=== PATIENT | male | born 1995 | race Caucasian/White ===

== ENCOUNTER 2017-05-13 19:27 | Observation (INO) | payer BC ==
[2017-05-13 20:06] LABS: #Basophils 0.1 thou/uL (0.0-0.2); #Eosinphils 0.1 thou/uL (0.0-0.7); #Monocytes 0.9 thou/uL (0.11-0.59); #Neutrophils 7.1 thou/uL (1.40-6.50); %Basophils 0.6 % (0.0-1.0); %Lymphocytes 19.3 % (21.0-51.0); %Monocytes 8.8 % (0.0-10.0); Hematocrit 51.8 % (42.0-52.0); Mean Platelet Volume 6.2 fL (7.4-10.4); Red Blood Cell (RBC) Count 5.77 mill/uL (4.70-6.10); White Blood Cell (WBC) Count 10.1 thou/uL (4.8-10.8)
[2017-05-13 20:25] LABS: ALT (SGPT) 23 U/L (8-55); AST (SGOT) 28 U/L (5-34); Alkaline Phosphatase 66 U/L (40-150); Anion Gap 16 mmol/L (10-20); BUN (Urea Nitrogen) 11 mg/dL (8.9-20.6); Bilirubin, Total 1.7 mg/dL (0.2-1.2); CK (CPK) 106 U/L (30-200); Calc. Creatinine Clearance 0 mL/min (70-130); Calcium 9.9 mg/dL (7.8-10.44); Carbon Dioxide 26 mmol/L (22-29); Chloride 99 mmol/L (98-107); Estimated GFR-MDRD Greater than 90; Globulin 2.7 g/dL (2.4-3.5); Protein, Total 7.5 g/dL (6.0-8.3)
[2017-05-13 20:30] LABS: Troponin I Less than 0.010 ng/mL (< 0.028)
--- NOTE | 2017-05-13 20:52 | RAD ---
CHEST TWO VIEWS 05/13/17 HISTORY: Chest pain. FINDINGS: The cardiac silhouette and pulmonary vasculature are unremarkable. Mediastinum is midline. There is n o confluent air space consolidation, pneumothorax or pleural fluid apparent. IMPRESSION: No active cardiopulmonary abnormalities are demonstrated. POS: [facility]
[2017-05-13] MEDS ORDERED: Diazepam 5 MG TAB ONE (21:09)
[2017-05-13] MEDS ORDERED: Potassium Chloride 20 MEQ TAB ONE (21:10)
[2017-05-13 22:24] LABS: Bilirubin Negative (Negative); Blood, Urine Negative (Negative); Glucose, Urine (Dipstick) Negative (Negative); Ketone, Urine 40 mg/dL (Negative); Nitrite Negative (Negative); Protein, Urine (Dipstick) Negative (Neg-Trace)
[2017-05-13 22:30] LABS: Amphetamine Not Detected (NotDetected); Methadone Not Detected (NotDetected); Methamphetamine Not Detected (NotDetected)
[2017-05-14] MEDS ORDERED: Ondansetron ODT 4 MG TAB SL PRN (01:03)
[2017-05-14] MEDS ORDERED: Ondansetron HCl/PF 4 MG/2 ML Vial IVP PRN (01:03)
[2017-05-14] MEDS ORDERED: HYDROcodone/Acetaminophen 5/325 mg Tablet PO PRN (01:06)
[2017-05-14] MEDS ORDERED: HYDROcodone/Acetaminophen 10/325 mg Tablet PO PRN (01:06)
[2017-05-14] MEDS ORDERED: Ondansetron ODT 4 MG TAB PO PRN (01:06)
[2017-05-14] MEDS ORDERED: Acetaminophen 325 MG TAB PO PRN (01:06)
[2017-05-14 01:15] LABS: Troponin I Less than 0.010 ng/mL (< 0.028)
[2017-05-14] MEDS ORDERED: Enoxaparin Sodium 40 MG/0.4 ML SYRINGE SC SCH (01:15)
[2017-05-14] MEDS ORDERED: Sodium Chloride 0.45% 1,000 ML IV SCH (01:15)
[2017-05-14 02:01] VITALS: BMI 20.9
[2017-05-14] MEDS: Sodium Chloride 0.9% 1,000 ML IV SCH ×2 (02:20→12:16)
[2017-05-14 06:09] LABS: #Basophils 0.1 thou/uL (0.0-0.2); #Eosinphils 0.2 thou/uL (0.0-0.7); #Lymphocytes 2.3 thou/uL (1.20-3.40); #Monocytes 0.7 thou/uL (0.11-0.59); #Neutrophils 3.7 thou/uL (1.40-6.50); %Basophils 0.8 % (0.0-1.0); %Eosinophils 2.2 % (0.0-10.0); %Monocytes 9.7 % (0.0-10.0); Hematocrit 42.9 % (42.0-52.0); Mean Platelet Volume 6.2 fL (7.4-10.4); Red Blood Cell (RBC) Count 4.77 mill/uL (4.70-6.10); White Blood Cell (WBC) Count 6.8 thou/uL (4.8-10.8)
[2017-05-14 06:33] LABS: Anion Gap 8 mmol/L (10-20); BUN (Urea Nitrogen) 11 mg/dL (8.9-20.6); Calc. Creatinine Clearance 142 mL/min (70-130); Calcium 8.9 mg/dL (7.8-10.44); Carbon Dioxide 29 mmol/L (22-29); Chloride 105 mmol/L (98-107); Estimated GFR-MDRD Greater than 90
--- NOTE | 2017-05-14 07:04 | HP ---
DATE OF ADMISSION: 05/13/2017 PRIMARY CARE PHYSICIAN: Dr. Mcdonald, but has not been seeing him in about 4 years. CHIEF COMPLAINT: Intermittent chest pain, palpitations. HISTORY OF PRESENT ILLNESS: Mr. Perdue is a 22-year-old white male with no significant past medical history. He has had 3 months of discomforts in his upper body that have been intermittent. He will describe pain as a pressure-like sensation in the center of his chest that will go up to his neck or shoulder or down to his lower abdomen. It seems to be alleviated by flatus or belching but did have one episode that woke him up and seemed to be a sharp pain shooting down to the lower abdomen area. He has noted multiple episodes of palpitations where he can feel his heart racing. Not necessarily a ssociated with chest pain. After several months of this, and after discussing with his parents, he decided to go to Urgent Care earlier today. There he was noted to be tachycardic but regular, and because of a history of chest p ain and tachycardia, he was sent here for evaluation. Denies any syncope or presyncope. No known an xiety. He has had 1-2 episodes of sweats at night and at least one occasion where he has had to reyes ge his clothes, but no overt fever. No cough or sputum production. No GI bleeding from above or bel ow. The patient does use alcohol and drinks pretty much every day. Has just a couple of beers to be take n around the house, but if he goes out to the bar, will have anywhere from 6 to 8 he thinks. He does go sometimes a couple of weeks without drinking much and says he does not get agitated or anx ious or have tremors. He presented here at the emergency department. He was given a liter of normal saline, 324 mg of aspi rin, 10 mg of Valium, and 40 mEq of KCl. Potassium was noted to be slightly low. A second liter has been ordered but not given. His heart rates fluctuated per the ER notes from 104 to 120; however, when I was seeing him, he was i n the low 90s and actually dipped down into the 80s. The ER doctor did consult Dr. Grayson, who said he would see the patient if he was admitted, I will ge t an echocardiogram. Other workup so far has been negative. PAST MEDICAL HISTORY: None. PAST SURGICAL HISTORY: None. HOME MEDICATIONS: None. ALLERGIES: NKDA. FAMILY HISTORY: Negative for clotting or bleeding disorder. No immune dysfunction, no premature cor onary artery disease. He does have a grandfather who was diagnosed in his 50s with COPD. SOCIAL HISTORY: Significant for alcohol as above. He denies any IV drug use or marijuana use. He d oes not smoke tobacco but does vape regularly. REVIEW OF SYSTEMS: A 10-point review of systems was performed, negative for all the systems except a s stated as per HPI. PHYSICAL EXAMINATION: VITAL SIGNS: Temperature 98.3, pulse 110, down in the low 90s when I saw him, blood pressure 143/96, respiratory rate 15, satting 98% on room air. GENERAL: He is awake. He is alert. He is oriented x3. He is a well-developed, well-nourished whit e male, appears to be in no acute distress. HEENT: Normocephalic, atraumatic. Pupils are equal and reactive bilaterally. Conjunctivae are mois t without visible lesions or thrush. NECK: Supple. There is no lymphadenopathy, JVD, or thyromegaly. He has normal carotid upstrokes wi thout bruits. Thyroid is normal. LUNGS: Clear to auscultation bilaterally. There were no wheezes, no rales, no rhonchi, no prolonged expiratory phase. He has symmetrical chest excursion without abnormality in air movement. CARDIOVASCULAR: Normal S1 and S2. No S3 or S4. No murmurs. He is tachycardic but regular. ABDOMEN: Soft. It is nontender, nondistended with normoactive bowel sounds present in all 4 quadran ts. EXTREMITIES: No cyanosis, no clubbing. No edema with 2+ peripheral pulses. NEUROLOGIC: Cranial nerves II through XII are grossly intact. There are no focal neurologic deficit s. He does not appear anxious. SKIN: Warm, moist, and well perfused. There are no rashes or lesions. MUSCULOSKELETAL: Normal to inspection. His large joints appear intact, there is no inflammation and no palpable effusions. LABORATORY DATA: CMP is normal. Potassium slightly low at 3.4, creatinine 0.97, BUN of 11, glucose of 87, calcium is 9.9. Liver function is normal except for a total bilirubin slightly elevated at 1. 7. CBC showed a white count of 10.1, hemoglobin 17.7, hematocrit of 51.8, platelet count of 363,000. CK -MB normal at 0.7, troponin I undetectable and free T4 1.04 with a TSH of 2.06. Chest x-ray showed no abnormalities. ASSESSMENT AND PLAN: 1. Palpitations: The patient has has sinus tachycardia. EKG shows possible biatrial enlargement. We will place the patient in observation. Get serial cardiac biomarkers, and a stat 2-D echocardiogr am in the morning. Dr. Grayson will be consulted for his opinion. Certainly, this could represent a pericarditis or viral myocarditis, we will follow up with the results of the echocardiogram and the l ab testing. 2. Intermittent chest pains: I do not suspect ischemic coronary artery disease in a 22-year-old to present this way. I will follow up on the results of his echo as above. Place him on a PPI and nicanor tor. 3. Alcohol use: The patient denies any history of withdrawal. Watch him very closely and use Ativa n p.r.n.
[2017-05-14 07:15] LABS: Free T3 2.76 pg/mL (1.71-3.71)
[2017-05-14] MEDS ORDERED: Famotidine 20 MG TAB PO SCH (09:00)
[2017-05-14] MEDS ORDERED: Aspirin 325 MG TAB PO SCH (09:00)
--- NOTE | 2017-05-14 11:07 | PDOC.EVN ---
Event Note - Event Note Event Note: Pt seen and examined. chart reviewed. care discussed w parents at bedside. Reports of more right sided AP radiating to lower belly,relieved with passing gas.Feels like heartburn. with slightly high,T.Bilirubin,will get RUQ-US to r/o GB colic. VSS No RUQ tenderness on exam per se however. CTA b/l. Few ectpoic beats on cardiac auscultation.Troponins negative so far. ECHO done,results pending.cardiology recs requested. will follow
--- NOTE | 2017-05-14 14:06 | ULT ---
RIGHT UPPER QUADRANT ULTRASOUND: DATE: 05/14/17. COMPARISON: None. HISTORY: Right upper quadrant pain, elevated bilirubin. TECHNIQUE: Multiplanar, urrutia scale, sonographic imaging of the right upper quadrant obtained. FINDINGS: The imaged pancreatic parenchyma appears unremarkable. The tail is partially obscured by bowel gas. There is no focal liver lesion or intrahepatic biliary dilatation seen. There is no gallbladder wall thickening or pericholecystic fluid. Common bile duct measures 2-3 mm, within normal limits. No gallstones are noted. The right kidney measures 9.9 cm in craniocaudal dim ension and demonstrates no stone, hydronephrosis, or mass lesion. The carpenters helper reports a negative Alejo's sign. IMPRESSION: Unremarkable right upper quadrant ultrasound. POS: [facility]
--- NOTE | 2017-05-14 14:16 | CON ---
CARDIOLOGY CONSULTATION NOTE DATE OF CONSULTATION: 05/14/2017 REASON FOR CONSULTATION: Chest pain and tachycardia. HISTORY OF PRESENT ILLNESS: Mr. Perdue is a very pleasant 22-year-old white gentleman who comes to [facility] for chest pain and tachycardia. He noted that his heart was in the 120s, so he decided t o go to an urgent care who referred him to the ER. He was found to have a heart rate in the 120s, so he was admitted for further evaluation and there was no good reason. He was found to be in sinus ta chycardia. He already complained of upper chest pain. He states that the pain happens when he eats spicy food or very fatty food. He usually burps and the pain goes away or passes gas and the pain go es away. He does not really exercise, he is not that active, but he otherwise has no other problems. PAST MEDICAL HISTORY: None. SOCIAL HISTORY: He drinks about 4-8 beers every day, more on the weekends. No tobacco or drugs. FAMILY HISTORY: Noncontributory. OUTPATIENT MEDICATIONS: None. ALLERGIES: No known drug allergies. REVIEW OF SYSTEMS: A 12-point of systems was done, it is all negative unless stated in the history o f present illness. PHYSICAL EXAMINATION: VITAL SIGNS: Temperature 98.0, pulse 76, respiratory rate 16, satting 96% room air and blood pressur e 132/85. GENERAL: Awake, alert and oriented x3, in no distress. HEENT: Normocephalic and atraumatic. NECK: Supple. LUNGS: Clear. CARDIOVASCULAR: S1 and S2. No S3 or S4. No murmurs or rubs. ABDOMEN: Soft, positive bowel sounds. EXTREMITIES: No edema. SKIN: Warm and dry. LABORATORY DATA: Laboratory work was reviewed. Normal white count, hemoglobin 17, hematocrit 51 and platelet count of 363. Coags: D-dimer was undetectable. Chemistries were normal except for a low potassium of 3.4. Troponin was negative x2. Free T3, free T4 and TSH were normal. UA was unremarka ble and urine drug screen is negative. IMAGING DATA: Echocardiogram was reviewed, normal LV function, normal diastolic function, trace MR a nd mild TR. Abdominal ultrasound is pending. Chest x-ray is unremarkable. ASSESSMENT AND PLAN: 1. Sinus tachycardia: Resolved. May be related to his alcohol use. At this time, he is got a norm al echocardiogram. I do not think we need to do a stress test on him as his symptoms are most likely related to gastroesophageal reflux disease. 2. Gastroesophageal reflux disease. I have advised him to stop alcohol use, also to try to stay jodi y from really fatty foods. We will prescribe proton pump inhibitor to take every day for the next mo nt and we will plan on seeing him in 1 month to see if he has any improvement in his symptoms. 3. Chest pain: As above, probably related to gastroesophageal reflux disease. 4. Alcohol use: Counseled on cessation. Thank you for letting us to participate in the care of the patient. We will sign off. Please call w ith any questions.
[2017-05-14 15:22] VITALS: BP 119/63; TEMP 98
--- NOTE | 2017-05-15 02:52 | DIS ---
DATE OF ADMISSION: 05/14/2017 DATE OF DISCHARGE: 05/14/2017 CONDITION AT THE TIME OF DISCHARGE: Stable and improved. DISCHARGE DIAGNOSES: 1. Sinus tachycardia. 2. Gastroesophageal reflux disease. 3. Alcohol overuse. DISCHARGE MEDICATIONS: Protonix 40 mg daily. PROCEDURES DONE IN THE HOSPITAL: Include; 1. Abdominal ultrasound which was negative for any gallstones, pericholecystic fluid or gallbladder wall thickening. 2. Transthoracic echocardiogram, which is entirely within normal limits with EF of 60-65%. CONSULTATIONS: Include Cardiology, Dr. Grayson. PRIMARY CARE PHYSICIAN: Everton Mcdonald M.D. HISTORY OF PRESENTING ILLNESS: Mr. Perdue is a young 22-year-old male without any signific ant past medical history who presented to the emergency room with complaints of on and off chest pain , which felt like acid reflux associated with some palpitations. He was found to have sinus tachycar cuco upon presentation and was admitted for further evaluation. Please see admission history and phys ical dictated earlier this morning by Dr. Pandey. HOSPITAL COURSE: The patient was seen by Cardiology and underwent a cardiac evaluation with serial c ardiac enzymes and echocardiogram and cardiac monitoring. All of his cardiac workup was unremarkable . He also underwent a right upper quadrant ultrasound with regards to his symptoms of pain starting in the lower chest and upper abdomen. He did not have any gallbladder issues either. He remained hemodynamically stable and at this time was cleared by Cardiology for discharge. He was started on Protonix and the care was discussed with his parents present in the room. He was advised to stay away from alcohol use and follow up with Cardiology as an outpatient. He was seen and examin ed prior to discharge. PHYSICAL EXAMINATION: VITAL SIGNS: Temperature 98, respirations 16, saturating 96% on room air, blood pressure 132/85. GENERAL: No acute distress, awake, alert, oriented x3. CHEST: Clear to auscultation without any wheezing, rales or rhonchi. HEART: Rhythm is regular without any murmur, rubs or gallops. At this time, he will be discharged home. All questions were answered.
== END 2017-05-14 15:20 | disposition home or self-care (01) ==
LOC: ERS 19:27 → 2SW 05-14 00:10
PROVIDERS: ADMIT Internal Medicine Infectious Disease; ATTEND Internal Medicine Infectious Disease
DX: R00.0 Tachycardia, unspecified (principal); K21.9 Gastro-esophageal reflux disease without esophagitis; R07.89 Other chest pain; F10.10 Alcohol abuse, uncomplicated; F17.290 Nicotine dependence, other tobacco product, uncomplicated
CPT/HCPCS: 36415; 71020; 76705; 80048; 80053; 80306; 81003; 82553; 84439; 84443; 84481; 84484; 85025; 85379; 93005; 93010; 93306; 96360; 96361; 99406; G0378; J1650

== ENCOUNTER 2017-11-02 20:41 | Inpatient (IN) | payer BC, OTHER, SELFPAY ==
[2017-11-02] MEDS ORDERED: Ondansetron ODT 4 MG TAB PO PRN (22:40)
[2017-11-02] MEDS ORDERED: Acetaminophen 500 MG TAB PO PRN (22:40)
[2017-11-02] MEDS ORDERED: Lorazepam 1 MG TAB PO PRN (22:40)
[2017-11-02] MEDS ORDERED: Ondansetron HCl/PF 4 MG/2 ML Vial IVP PRN (22:40)
[2017-11-02] MEDS: Morphine 4 MG/ML VIAL SLOW IVP PRN (22:53)
[2017-11-02] MEDS: Sodium Chloride 0.9% 1,000 ML IV SCH (22:57)
[2017-11-02 23:09] VITALS: BMI 20.1
[2017-11-03] MEDS: traMADol HCl 50 MG TAB PO PRN ×2 (01:20→21:58)
[2017-11-03] MEDS: Morphine 4 MG/ML VIAL SLOW IVP PRN ×4 (03:33→17:32)
[2017-11-03 05:13] LABS: ALT (SGPT) 16 U/L (8-55); AST (SGOT) 21 U/L (5-34); Albumin 3.4 g/dL (3.5-5.0); Alkaline Phosphatase 56 U/L (40-150); Anion Gap 11 mmol/L (10-20); BUN (Urea Nitrogen) 7 mg/dL (8.9-20.6); Bilirubin, Total 0.9 mg/dL (0.2-1.2); Calc. Creatinine Clearance 162 mL/min (70-130); Calcium 8.5 mg/dL (7.8-10.44); Carbon Dioxide 22 mmol/L (22-29); Cardiac Risk 2.8 (Less than 4.5); Chloride 103 mmol/L (98-107); Cholesterol 115 mg/dl (< 200 Desired); Estimated GFR-MDRD Greater than 90; Glucose 83 mg/dL (70-105); HDL Cholesterol 41 mg/dL (>60 Neg Risk); LDL Cholesterol, Calculated 60 mg/dL; Potassium 3.7 mmol/L (3.5-5.1); Protein, Total 5.4 g/dL (6.0-8.3); Sodium 132 mmol/L (136-145); Triglycerides 70 mg/dL (Less than 150)
[2017-11-03] MEDS: Sodium Chloride 0.9% 1,000 ML IV SCH ×3 (05:23→21:56)
[2017-11-03 05:25] LABS: Band 3 % (5-11); Eosinophils 1 % (0-10); Hemoglobin 14.1 g/dL (14.0-18.0); Lymphocytes 11 % (21-51); MDiff Complete? YES; Mean Corpuscular HGB CONC 34.7 g/dL (32.0-36.0); Mean Corpuscular Hemoglobin 30.6 pg (27.0-31.0); Mean Corpuscular Volume 88.2 fl (80.0-94.0); Mean Platelet Volume 6.3 fL (7.4-10.4); Monocytes 5 % (0-10); Neutrophil 80 % (42-75); PLT Morphology Comment Appears Adequate; Platelet Count 218 thou/uL (130-400); RBC Distribution Width 11.2 % (11.5-14.5); RBC Morphology Normal; White Blood Cell (WBC) Count 8.4 thou/uL (4.8-10.8)
[2017-11-03 05:30] LABS: Lipase 2569 U/L (8-78)
[2017-11-03] MEDS ORDERED: Acetaminophen 500 MG TAB PO PRN (07:14)
--- NOTE | 2017-11-03 07:17 | HP ---
DATE OF ADMISSION: 11/02/2017 PRIMARY CARE PHYSICIAN: Everton Mcdonald MD CHIEF COMPLAINT: Abdominal pain. HISTORY OF PRESENT ILLNESS: This is a 22-year-old male who complains of approximately 3-da y history of midepigastric abdominal pain which is sharp in nature, stabbing, radiating to the back. The patient denied any recent trauma, injury, travel history, nausea, or vomiting. The patient stat es he took [id number] antacids for reflux symptoms as he thought this was the issue causing his pain. The patient apparently did not have any relief from the antacids and presented to [facility] for evaluation. The patient apparently was evaluated and diagnosed with gastritis/reflu x and placed on Prilosec OTC. The patient states the symptoms did not improve with this medication w ith worsening abdominal pain. The patient did not take any other specific recent medications and den ies any chronic medication use. The patient states that he started noticing reflux and heartburn sym ptoms in April 2017 and apparently was admitted to [facility], undergoing multitude of te sts including echocardiogram and abdominal ultrasound. The patient was eventually discharged home on 05/14/2017, diagnosed with gastroesophageal reflux disease as well as alcohol abuse. The patient wa s told to modify his diet and avoid alcohol. However, patient states he only did this for a short am ount of time, at which point, his symptoms have returned. The patient does admit to drinking a six p ack of beer per day. The patient also states he had taken over the counter Pepto-Bismol for his refl ux and has noted some dark stools. The patient denied any hematemesis, weight loss, travel history o r family members with similar symptoms. The patient presented to [facility] in [place], [place], undergo ing CT of the abdomen showing evidence of pancreatitis. The patient had an amylase drawn which was e levated, but no specific lipase. The patient was treated with Dilaudid and intravenous normal saline and transferred to [facility] for further evaluation and observation. PAST MEDICAL HISTORY: 1. Alcohol abuse. 2. Gastritis/gastroesophageal reflux disease. PAST SURGICAL HISTORY: Reviewed and negative. CURRENT HOME MEDICATIONS: [id number] Prilosec. ALLERGIES: No known drug allergies. FAMILY HISTORY: No inheritable diseases per patient report. One grandfather diagnosed with COPD. SOCIAL HISTORY: Patient resides in [place], [place]. Accompanied by his mother and girlfriend in the spital. Reports admits to an electronic cigarette use. Alcohol use up to 6 cans of beer daily. No illicit drug use. Functional of all activities of daily living. REVIEW OF SYSTEMS: The following complete review of systems was negative, unless otherwise mentioned in the HPI or below: Constitutional: Weight loss or gain, ability to conduct usual activities. Sk in: Rash, itching. Eyes: Double vision, pain. ENT/Mouth: Nose bleeding, neck stiffness, pain, te nderness. Cardiovascular: Palpitations, dyspnea on exertion, orthopnea. Respiratory: Shortness of breath, wheezing, cough, hemoptysis, fever or night sweats. Gastrointestinal: Poor appetite, abdom inal pain, heartburn, nausea, vomiting, constipation, or diarrhea. Genitourinary: Urgency, frequenc y, dysuria, nocturia. Musculoskeletal: Pain, swelling. Neurologic/Psychiatric: Anxiety, depressio n. Allergy/Immunologic: Skin rash, bleeding tendency. PHYSICAL EXAMINATION: VITAL SIGNS: Blood pressure 131/84, pulse 90, temperature 98.1 degrees Fahrenheit, respiratory rate 20, O2 saturation 96% on room air. GENERAL APPEARANCE: This is a 22-year-old male, alert and oriented x3, pleasant, conversan t, in mild distress. HEENT: Pupils are equal, round, and reactive to light and accommodation. Extraocular muscles are in tact. No scleral icterus, no conjunctival injection. Nares patent. OP is clear. Teeth in good rep air. NECK: Supple. No cervical adenopathy, no thyromegaly, no carotid bruits, no JVD appreciated. Cervi reji spine full active and passive range of motion. No meningeal signs appreciated. CHEST: Lungs are clear to auscultation bilaterally. No wheezing or rhonchi. CARDIOVASCULAR: S1, S2 without murmur, rub, or gallop. ABDOMEN: Flat with mild tenderness to palpation in the midepigastric region. No palpable mass. Chemult el sounds are positive but diminished in all 4 quadrants. No rebound or guarding noted. EXTREMITIES: Warm and dry with fair turgor. No clubbing, cyanosis, or asymmetric edema appreciated. Pulses palpable distally at the dorsalis pedis, posterior tibial, and popliteal arteries bilaterall y. Capillary refill less than 2 seconds. NEUROLOGIC: Cranial nerves II through XII are grossly intact. No focal or lateralizing signs apprec iated. PERTINENT LABORATORY AND X-RAY FINDINGS: Sodium 134, potassium 3.2, chloride 96, CO2 of 25, BUN 6, c reatinine 0.7, glucose 100. CBC showed a white blood cell count of 10, hemoglobin 16.6, hematocrit 4 7.3, platelet count 233,000, AST 49, ALT of 11. Amylase 341. Urinalysis positive for ketones and pr otein. CT of the abdomen and pelvis with contrast dated 11/02/2017 showed glandular edema of the gonzalez creas with peripancreatic fluid consistent with acute pancreatitis. No obstructive mass or stone not ed. No cyst or pseudocyst. No abscess or drainable fluid collection. No free air noted. ASSESSMENT AND PLAN: 1. Acute pancreatitis. Suspect alcohol induced given patient's chronic alcohol abuse. Continue n.p .o. status except for sips of water. Continue intravenous normal saline at 125 mL per hour. Morphin e sulfate 2 mg IV q.4 hours p.r.n. Check lipase level now. Repeat lipase level in the a.m. Check f asting lipid profile in the a.m. 2. Acute midepigastric abdominal pain secondary to #1. See #1 above for treatment. Continue suppor tive measures. N.p.o. status currently. 3. Gastroesophageal reflux. Continue Pepcid 20 mg IV q.12 hours. Check stool Hemoccult. 4. Alcohol abuse. We will offer cessation resources prior to discharge. Ativan 1 mg p.o. q.4 hours p.r.n. withdrawal symptoms. 5. Prophylaxis. Sequential compression devices while in bed. Pepcid 20 mg IV q.12 hours. 6. Code status is FULL. Surrogate medical decision maker is the patient's mother.
[2017-11-03 09:19] LABS: CRP (Inflammatory) 5.44 mg/dL (= or < 0.5); Magnesium 1.7 mg/dL (1.6-2.6)
[2017-11-03] MEDS: Famotidine/PF 20 mg/2ml Vial SLOW IVP SCH ×2 (09:38→20:51)
--- NOTE | 2017-11-03 11:06 | PDOC.PN ---
- Subjective Encounter Start Date: 11/03/17 Encounter Start Time: 08:45 -: old records requested/rev Patient seen and examined for acute pancreatitis. No new complaints. No overnight events - Objective Resuscitation Status: Resuscitation Status FULL:Full Resuscitation MAR Reviewed: Yes Vital Signs & Weight: Vital Signs (12 hours) Temp Pulse Resp BP Pulse Ox 11/03/17 08:00 97.9 F 94 16 96 11/03/17 07:24 97.9 F 94 16 120/75 96 11/03/17 05:43 98.2 F 99 18 115/73 96 11/03/17 00:41 98 F 100 18 119/74 98 11/02/17 23:36 97.8 F 84 18 95 Weight Admit Weight 148 lb 8 oz Weight 148 lb 8 oz I&O: 11/02/17 11/03/17 11/04/17 06:59 06:59 06:59 Intake Total 1027 Output Total 250 Balance 777 Result Diagrams: 11/03/17 04:17 11/03/17 04:17 Phys Exam - Physical Examination Constitutional: NAD HEENT: PERRLA, moist MMs, sclera anicteric Neck: no JVD, supple Respiratory: no wheezing, no rales, no rhonchi Cardiovascular: RRR, no significant murmur, no rub Gastrointestinal: soft, non-tender, no distention, positive bowel sounds Musculoskeletal: no edema, pulses present Neurological: non-focal, normal sensation, moves all 4 limbs Psychiatric: normal affect, A&O x 3 Skin: no rash, normal turgor Dx/Plan (1) Acute alcoholic pancreatitis Code(s): K85.20 - ALCOHOL INDUCED ACUTE PANCREATITIS WITHOUT NECROSIS OR INFCT Status: Acute (2) Alcohol abuse Code(s): F10.10 - ALCOHOL ABUSE, UNCOMPLICATED Status: Chronic (3) GERD (gastroesophageal reflux disease) Code(s): K21.9 - GASTRO-ESOPHAGEAL REFLUX DISEASE WITHOUT ESOPHAGITIS Status: Chronic - Plan cont current plan of care * contineu IVF * repeat labs tomorrow * continue IV pepcid * continue morphin for pain control * will allow ice chips today * will advance diet tomorrow based on labs result * counselled to avoid alcohol abuse * medication reviewed as below * symptomatic treatment. Review of Systems - Review of Systems Constitutional: negative: fever, chills, sweats, weakness, malaise, other Eyes: negative: Pain, Vision Change, Conjunctivae Inflammation, Eyelid Inflammation, Redness, Other ENT: negative: Ear Pain, Ear Discharge, Nose Pain, Nose Discharge, Nose Congestion, Mouth Pain, Mouth Swelling, Throat Pain, Throat Swelling, Other Respiratory: negative: Cough, Dry, Shortness of Breath, Hemoptysis, SOB with Excertion, Pleuritic Pain, Sputum, Wheezing Cardiovascular: negative: chest pain, palpitations, orthopnea, paroxysmal nocturnal dyspnea, edema, light headedness, other Gastrointestinal: Abdominal Pain. negative: Nausea, Vomiting, Diarrhea, Constipation, Melena, Hematochezia, Other Genitourinary: negative: Dysuria, Frequency, Incontinence, Hematuria, Retention , Other Skin: negative: Rash, Lesions, Román, Bruising, Other Neurological: negative: Weakness, Numbness, Incoordination, Change in Speech, Confusion, Seizures, Other - Medications/Allergies Allergies/Adverse Reactions: Allergies Allergy/AdvReac Type Severity Reaction Status Date / Time No Known Drug Allergies Allergy Verified 05/14/17 01:01 Medications: Current Medications Acetaminophen (Tylenol) 500 mg PO Q6H PRN PRN Reason: Headache/Fever or Mild Pain Famotidine (Pepcid) 20 mg SLOW IVP Q12HR REA Last Admin: 11/03/17 09:38 Dose: 20 mg Sodium Chloride (Normal Saline 0.9%) 1,000 mls @ 125 mls/hr IV .Q8H REA Last Admin: 11/03/17 05:23 Dose: 1,000 mls Lorazepam (Ativan) 1 mg PO Q4H PRN PRN Reason: Anxiety/Agitation Morphine Sulfate (Morphine) 2 mg SLOW IVP Q4H PRN PRN Reason: Moderate to Severe Pain (6-10) Last Admin: 11/03/17 09:35 Dose: 2 mg Ondansetron HCl (Zofran Odt) 4 mg PO Q6H PRN PRN Reason: Nausea/Vomiting Ondansetron HCl (Zofran) 4 mg IVP Q6H PRN PRN Reason: Nausea/Vomiting Sodium Chloride (Flush - Normal Saline) 10 ml IVF Q12HR REA Last Admin: 11/03/17 09:38 Dose: Not Given Sodium Chloride (Flush - Normal Saline) 10 ml IVF PRN PRN PRN Reason: Saline Flush Tramadol HCl (Ultram) 50 mg PO Q4H PRN PRN Reason: Moderate Pain (4-6) Last Admin: 11/03/17 01:20 Dose: 50 mg
[2017-11-04] MEDS: Sodium Chloride 0.9% 1,000 ML IV SCH ×3 (06:01→22:37)
[2017-11-04] MEDS: traMADol HCl 50 MG TAB PO PRN ×2 (07:44→21:20)
[2017-11-04] MEDS: Famotidine/PF 20 mg/2ml Vial SLOW IVP SCH ×2 (07:46→20:17)
[2017-11-04 09:53] LABS: #Eosinphils 0.3 thou/uL (0.0-0.7); #Lymphocytes 1.2 thou/uL (1.20-3.40); #Monocytes 0.7 thou/uL (0.11-0.59); #Neutrophils 5.5 thou/uL (1.40-6.50); %Basophils 0.2 % (0.0-1.0); %Eosinophils 3.8 % (0.0-10.0); %Lymphocytes 15.6 % (21.0-51.0); %Monocytes 9.4 % (0.0-10.0); %Neutrophils 71.1 % (42.0-75.0); Hemoglobin 14.2 g/dL (14.0-18.0); Mean Corpuscular HGB CONC 35.7 g/dL (32.0-36.0); Mean Corpuscular Hemoglobin 31.4 pg (27.0-31.0); Mean Corpuscular Volume 87.9 fl (80.0-94.0); Mean Platelet Volume 6.1 fL (7.4-10.4); Platelet Count 236 thou/uL (130-400); RBC Distribution Width 11.2 % (11.5-14.5); Red Blood Cell (RBC) Count 4.53 mill/uL (4.70-6.10); White Blood Cell (WBC) Count 7.8 thou/uL (4.8-10.8)
[2017-11-04 10:10] LABS: ALT (SGPT) 13 U/L (8-55); AST (SGOT) 16 U/L (5-34); Albumin 3.4 g/dL (3.5-5.0); Alkaline Phosphatase 53 U/L (40-150); Anion Gap 12 mmol/L (10-20); BUN (Urea Nitrogen) 4 mg/dL (8.9-20.6); Bilirubin, Total 0.7 mg/dL (0.2-1.2); Calc. Creatinine Clearance 158 mL/min (70-130); Calcium 8.6 mg/dL (7.8-10.44); Carbon Dioxide 20 mmol/L (22-29); Chloride 104 mmol/L (98-107); Estimated GFR-MDRD Greater than 90; Globulin 2.3 g/dL (2.4-3.5); Glucose 61 mg/dL (70-105); Lipase 827 U/L (8-78); Magnesium 1.9 mg/dL (1.6-2.6); Phosphorus 2.6 mg/dL (2.3-4.7); Potassium 3.6 mmol/L (3.5-5.1); Protein, Total 5.7 g/dL (6.0-8.3); Sodium 132 mmol/L (136-145)
[2017-11-05 05:38] LABS: #Eosinphils 0.4 thou/uL (0.0-0.7); #Lymphocytes 1.6 thou/uL (1.20-3.40); #Monocytes 0.8 thou/uL (0.11-0.59); #Neutrophils 3.3 thou/uL (1.40-6.50); %Basophils 0.4 % (0.0-1.0); %Eosinophils 5.9 % (0.0-10.0); %Lymphocytes 26.4 % (21.0-51.0); %Monocytes 12.8 % (0.0-10.0); %Neutrophils 54.4 % (42.0-75.0); Mean Corpuscular HGB CONC 36.2 g/dL (32.0-36.0); Mean Corpuscular Hemoglobin 32.3 pg (27.0-31.0); Mean Corpuscular Volume 89.1 fl (80.0-94.0); Mean Platelet Volume 6.5 fL (7.4-10.4); Platelet Count 244 thou/uL (130-400); RBC Distribution Width 11.3 % (11.5-14.5); Red Blood Cell (RBC) Count 4.33 mill/uL (4.70-6.10); White Blood Cell (WBC) Count 6.1 thou/uL (4.8-10.8)
[2017-11-05 05:47] LABS: ALT (SGPT) 12 U/L (8-55); AST (SGOT) 14 U/L (5-34); Albumin 3.2 g/dL (3.5-5.0); Alkaline Phosphatase 47 U/L (40-150); Anion Gap 10 mmol/L (10-20); BUN (Urea Nitrogen) Less than 4 mg/dL (8.9-20.6); Bilirubin, Total 0.6 mg/dL (0.2-1.2); Calc. Creatinine Clearance 162 mL/min (70-130); Calcium 8.8 mg/dL (7.8-10.44); Carbon Dioxide 25 mmol/L (22-29); Chloride 107 mmol/L (98-107); Estimated GFR-MDRD Greater than 90; Globulin 2.2 g/dL (2.4-3.5); Glucose 91 mg/dL (70-105); Lipase 434 U/L (8-78); Magnesium 1.8 mg/dL (1.6-2.6); Potassium 3.6 mmol/L (3.5-5.1); Protein, Total 5.4 g/dL (6.0-8.3); Sodium 138 mmol/L (136-145)
[2017-11-05] MEDS: Sodium Chloride 0.9% 1,000 ML IV SCH (06:00)
--- NOTE | 2017-11-05 08:43 | PDOC.PN ---
- Subjective Encounter Start Date: 11/04/17 Encounter Start Time: 12:00 Patient seen and examined on 11/04. Abd pain improving. No fever/chills/N/V. No new complaints. No overnight events - Objective Resuscitation Status: Resuscitation Status FULL:Full Resuscitation MAR Reviewed: Yes Vital Signs & Weight: Vital Signs (12 hours) Temp Pulse Resp BP Pulse Ox 11/05/17 07:30 98.1 F 79 16 120/76 99 Weight Admit Weight 148 lb 8 oz Weight 148 lb 8 oz I&O: 11/04/17 11/05/17 11/06/17 06:59 06:59 06:59 Intake Total 3291 2632 Output Total 1845 400 Balance 1446 2232 Result Diagrams: 11/05/17 05:15 11/05/17 05:15 Additional Labs: Laboratory Tests 11/04/17 09:27 Amylase 494.0 H Lipase 827 H Radiology Reviewed by me: No (CT abd - Acute Pancreatitis) Phys Exam - Physical Examination Constitutional: NAD Respiratory: no wheezing, no rhonchi Cardiovascular: RRR, no rub Gastrointestinal: soft, non-tender, positive bowel sounds Musculoskeletal: no edema Dx/Plan (1) Acute alcoholic pancreatitis Code(s): K85.20 - ALCOHOL INDUCED ACUTE PANCREATITIS WITHOUT NECROSIS OR INFCT Status: Acute (2) Chronic alcoholism Code(s): F10.20 - ALCOHOL DEPENDENCE, UNCOMPLICATED Status: Acute (3) GERD (gastroesophageal reflux disease) Code(s): K21.9 - GASTRO-ESOPHAGEAL REFLUX DISEASE WITHOUT ESOPHAGITIS Status: Chronic - Plan DVT proph w/SCDs Clear liqd diet -: Cont IV fluids -: AM labs including Lipase Review of Systems - Review of Systems Respiratory: negative: Cough, Dry, Shortness of Breath, Hemoptysis, SOB with Excertion, Pleuritic Pain, Sputum, Wheezing Cardiovascular: negative: chest pain, palpitations, orthopnea, paroxysmal nocturnal dyspnea, edema, light headedness, other - Medications/Allergies Allergies/Adverse Reactions: Allergies Allergy/AdvReac Type Severity Reaction Status Date / Time No Known Drug Allergies Allergy Verified 05/14/17 01:01 Medications: Current Medications Acetaminophen (Tylenol) 500 mg PO Q6H PRN PRN Reason: Headache/Fever or Mild Pain Famotidine (Pepcid) 20 mg SLOW IVP Q12HR REA Last Admin: 11/04/17 20:17 Dose: 20 mg Sodium Chloride (Normal Saline 0.9%) 1,000 mls @ 125 mls/hr IV .Q8H [facility] Last Admin: 11/05/17 06:00 Dose: 1,000 mls Lorazepam (Ativan) 1 mg PO Q4H PRN PRN Reason: Anxiety/Agitation Morphine Sulfate (Morphine) 2 mg SLOW IVP Q4H PRN PRN Reason: Moderate to Severe Pain (6-10) Last Admin: 11/03/17 17:32 Dose: 2 mg Ondansetron HCl (Zofran Odt) 4 mg PO Q6H PRN PRN Reason: Nausea/Vomiting Ondansetron HCl (Zofran) 4 mg IVP Q6H PRN PRN Reason: Nausea/Vomiting Sodium Chloride (Flush - Normal Saline) 10 ml IVF Q12HR [facility] Last Admin: 11/04/17 20:30 Dose: Not Given Sodium Chloride (Flush - Normal Saline) 10 ml IVF PRN PRN PRN Reason: Saline Flush Tramadol HCl (Ultram) 50 mg PO Q4H PRN PRN Reason: Moderate Pain (4-6) Last Admin: 11/04/17 21:20 Dose: 50 mg
[2017-11-05] MEDS: Famotidine/PF 20 mg/2ml Vial SLOW IVP SCH (08:57)
[2017-11-05 13:59] VITALS: BP 130/86; TEMP 97.3
--- NOTE | 2017-11-05 15:36 | DIS ---
DATE OF ADMISSION: 11/02/2017 DATE OF DISCHARGE: 11/05/2017 DISCHARGE DISPOSITION: Home. FOLLOWUP: Follow up with primary care physician, Dr. Everton Mcdonald in 1 week. Alcohol cessation wa s emphasized. DISCHARGE MEDICATIONS: Thiamine, folic acid and multivitamin. The patient was seen on the day of discharge, denies any new complaints, no chest pain, shortness of breath, palpitations, nausea, vomiting, diarrhea reported. Abdominal pain has resolved. He is chanell ating full liquid diet. He will continue full liquid diet for a day or so and will gradually advance to regular diet. BRIEF HOSPITAL COURSE: The patient is a 22-year-old male with alcohol abuse who presented to the [facility] with nausea and vomiting. He initially presented to an outside emergency room and was transfer red to this facility. His workup was consistent with acute pancreatitis with lipase of 3335. He was kept n.p.o. and was started on IV fluids. Pain was controlled with IV narcotics. His lipase on the day of discharge is 434 with amylase of 187. He is tolerating full liquid diet. The patient is req uesting to be discharged. He will follow up with the PCP next week. Alcohol cessation was emphasize d. Plan of care was discussed with the patient in detail. He stated understanding. FINAL DIAGNOSES: 1. Acute alcoholic pancreatitis. 2. Chronic alcohol use. 3. Hyponatremia. 4. Gastroesophageal reflux disease. Plan of care was discussed with the patient and he stated understanding.
== END 2017-11-05 14:19 | disposition home or self-care (01) | DRG 439 ==
LOC: T4-B 20:41
PROVIDERS: ADMIT Internal Medicine; ATTEND Internal Medicine
DX: K85.20 Alcohol induced acute pancreatitis without necrosis or infection (principal); E87.1 Hypo-osmolality and hyponatremia; K21.9 Gastro-esophageal reflux disease without esophagitis; F10.10 Alcohol abuse, uncomplicated; F10.20 Alcohol dependence, uncomplicated
CPT/HCPCS: 36415; 80053; 80061; 82150; 82274; 83690; 83735; 84100; 85007; 85025; 85027; 86140; J2270; S0028

== ENCOUNTER 2023-01-25 15:02 | Emergency (ER) | payer OTHER ==
[2023-01-25] MEDS ORDERED: HYDROcodone/Acetaminophen 5/325 mg Tablet ONE (15:42)
== END 2023-01-25 17:20 | disposition home or self-care (01) ==
LOC: ERS 15:02
DX: S82.201A Unspecified fracture of shaft of right tibia, initial encounter for closed fracture (principal); F17.200 Nicotine dependence, unspecified, uncomplicated; W23.1XXA Caught, crushed, jammed, or pinched between stationary objects, initial encounter
CPT/HCPCS: 29515